=== PATIENT | male | born 1940 | race Caucasian/White ===

== ENCOUNTER → 2023-09-12 13:09 | Outpatient (REF) | payer OTHER, SELFPAY ==
[2023-09-12 13:40] LABS: Blood Urea Nitrogen 21 mg/dl (9-20); Calcium 8.9 mg/dl (8.4-10.2); Carbon Dioxide 25 mmol/L (22-30); Chloride 100 mmol/L (98-107); Glucose 111 mg/dl (70-99); Sodium 134 mmol/L (135-145); eGFR > 60.00
== END ==
LOC: OLABWPC 13:09
PROVIDERS: ATTENDING PHYSICIAN Student in an Organized Health Care Education/Training Program
DX: E11.9 Type 2 diabetes mellitus without complications (principal); I50.32 Chronic diastolic (congestive) heart failure; E03.9 Hypothyroidism, unspecified; E78.2 Mixed hyperlipidemia; I10 Essential (primary) hypertension
CPT/HCPCS: 36415; 80048

== ENCOUNTER 2023-10-08 07:52 | Inpatient (IN) | payer OTHER, SELFPAY ==
[2023-10-08] VITALS (17 sets, daily range): BP systolic 138–170; BP diastolic 77–115; BMI 23.8
[2023-10-08 06:02] LABS: Glucose - Point of Care 182 mg/dl (70-99)
--- NOTE | 2023-10-08 06:12 | ED.CVA ---
History of Present Illness
General
Chief Complaint: CVA/TIA Symptoms
Source: records, family (Nephew), ambulance crew and other (Friend/POA)
Exam Limitations: clinical condition
Time Seen by Provider: 10/08/23 06:07
Nursing documentation reviewed up to this point in time: agreed with
Onset of Stroke Symptoms
Onset of symptoms known: No
Time pt last seen normal is known: Yes
Date last time pt seen normal: 10/07/23
History of Present Illness
History of Present Illness:
83-year-old male with past medical history of hypertension, hyperlipidemia, diabetes, CHF, CAD status post CABG, mild dementia, listed history of prior stroke (reportedly no residual deficits) who presents to the emergency department via EMS from
[facility] after being found down on the ground this morning. Patient cannot participate in history as unfortunately he is completely aphasic. Per EMS report he was found down on the ground, baseline unclear, last normal unclear.
Stroke alert called on arrival. While patient was in CT calls placed to his emergency contacts as well as staff at [facility]. Per the staff at [facility] he is oriented at baseline and performs all ADLs with the exception of needing some help with his
medication in the morning and evening. He was last seen at 8 PM last night when they helped him with his medications. This morning when I went to help give him his medications again and they found him wedged against the door on the ground. He was
breathing but not responding EMS was called to bring him to the hospital. I called his nephew who confirmed he is oriented and ambulatory at baseline does not drive but can do normal tasks and have a conversation. I called his friend (Marlo
Lito) who is also his power of admitting supervisor�patient is apparently a DNR/DNI; POA agreeable to any treatments short of intubation.
Past History
Past History
ED Past Medical History: CHF, HTN, Hypercholesterolemia, NIDDM, [place], Hypothyroidism and Other (Anemia, PNA, PVC's, RBBB, Dementia)
ED Past Surgical History: Cardiac (CABG, STENT) and Cholecystectomy
Social History
Tobacco: Former smoker
Alcohol: Former
Personal:
Living: alone
Review of Systems
Review of Systems
Unable to obtain full review of systems at this time due to: non-verbal
All Other Systems: Not applicable
Phy Exam
Physical Exam
Physical Exam:
General: Laying in bed eyes closed he does open his eyes to voice and physical stimulation but is completely aphasic
Head: Normocephalic, atraumatic
Eyes: Conjunctiva normal, pupils 3 mm and reactive to light bilaterally; he has no clear gaze preference I am able to get him to track across visual field
Throat: Airway intact, handling secretions
Neck: Trachea midline, supple without meningismus
Lungs: Clear to auscultation bilaterally, no wheezing, rales, rhonchi
Heart: Regular rate and rhythm, no murmurs, gallops, or rubs
Abd: Soft, non distended, no masses
Neuro: He has a left facial droop/ptosis; seems to prefer to move right side, not responding to painful stimuli in the left arm or left leg; he does have decent muscle tone in both the left and the right side on attempts at passive range of motion;
he will open his eyes to command but does not follow any complex commands makes no effort on asking to hold his arms or legs against gravity
Skin: no rash or signs of trauma
Extremities: Atraumatic, good pulses extremities
Scores
NIH Stroke Score
Level of Consciousness: 1 - Arousable
LOC Questions: 2-Neither correct
LOC Commands: 1-Performs one correctly
Best Horizontal Gaze: 0-Normal
Visual Piedra: 0=Normal, no visual loss
Facial Palsy: 2=Partial paralysis
Motor - Right Arm: 3=None vs. gravity
Motor - Left Arm: 3=None vs. gravity
Motor - Right Le-None vs. gravity
Motor - Left Le-None vs. gravity
Limb Ataxia: 0-Absent
Sensation: 1-Mild loss
Best Language: 3-Mute/global aphasia
Dysarthria: 0-Normal
Extinction and Inattention: 0-No abnormality
Total Score:: 22
Thrombolytic Contraindication
Inclusion and Exclusion criteria reviewed: Yes
Reasons for NON-Tx with Thrombolytics ABSOLUTE Exclusions: Greater than 4.5 hrs from onset of sxs
IAT Contraindications: Baseline mRS greater than or equal to 3 by history
Heart Failure Risk
Heart Failure Risk Score: Not Applicable
Heart Score for Chest Pain Patients
STEMI patient?: Not applicable
Withdrawal Assessment of Alcohol
Withdrawal Assessment Completed?: Not applicable
Course
Orders/Labs/Results
Orders:
Orders
10/08/23 05:51
CT Head W/o Cont STROKE ALERT Stat
Comment:
Reason For Exam: CVA symptoms
10/08/23 06:07
Electrocardiogram (*1) Stat
Reason for Study: Other
Other Reason for Exam: neuro symptoms
CT Head/Neck Ang STROKE ALERT Urgent
Comment:
Reason For Exam: aphasia, left weakness
Bedside Glucose- Treatment ONCE
Cardiac Monitoring- Treatment ONCE
EKG- Treatment ONCE
IV Insert/Care/Rem.- Treatment PRN
Vital Signs- Treatment ONCE
Frequency: Once
Pulse Ox/cont/shift [RESP] Stat
Quantity: 1
10/08/23 06:09
CT Brain Perfusion Urgent
Comment:
Reason For Exam: aphasia, CVA, unclear onset
10/08/23 06:11
Complete Blood Count/With Diff Urgent
Comprehensive Metabolic Panel Urgent
Creatine Phosphokinase Urgent
Comment: ADD ON
PTT Urgent
Prothrombin Time Urgent
10/08/23 06:41
Add On- LAB Urgent
Tests Added?: CPK
10/08/23 06:47
Aspirin 300 mg RECTAL NOW STA
10/08/23 07:04
NEUROLOGY CONSULT Urgent
Consulting Provider: Gerald Arenas
Was physician already notified: Yes
10/08/23 07:40
Admit/Transfer Patient As Directed
Co-Sign Provider:
Level of Care: Inpatient admission
Assign to:: IMU- Intermediate Care
Physician / Group: Sarbjit White
Diagnosis: left M1 area CVA
Reason for Hospitalization: left M1 area CVA
Expected length of stay greater than two midnights?: Yes
ELOS- Estimated Length of Stay in days: 3
I certify the patient meets the requirements for IP care: Yes
10/08/23 07:41
Code Status As Directed
Resuscitation Status: Do not resuscitate
Based on pt advanced directive or healthcare POA form: Yes
Physician note:: 10/07 ER discussed with POA - see note
DNR Bracelet Application ONCE
10/08/23 10:01
Acetaminophen [Tylenol/Feverall] 650 mg RECTAL Q4HPRN PRN
Acetaminophen [Tylenol] 650 mg PO Q4HPRN PRN
10/08/23 10:01
Case Management Consult ONCE
Case Management Consult: Discharge Planning
Comment: stroke/tia
DIETARY CONSULT Routine
Reason for Consult: stroke/TIA
Radio Interference Supervisor Urgent
Activity As Directed
Activity Level: As Tolerated
NIH Stroke Scale As Directed
Directions: Per protocol
Comment: every shift and with any change in condition or mental status
Neurological Checks As Directed
Frequency: q4h
Additional Instructions:: q4h x 24h upon admission to the floor, then qshift & with any change in condition
and mental status
Patient Education As Directed
Type: Stroke education packet
Comment: provide to patient and family
Pneumatic Compression Sleeves As Directed
Type: Knee high
Swallow Screening CVA/TIA ONLY As Directed
Comment: NPO until swallowing screening completed
If patient FAILS swallow screening:: NPO, Speech Therapy consult, Aspiration Precautions
If patient PASSES swallow screening, diet:: 1999 CHO Diabetic
Vital Signs As Directed
Frequency: Per unit guidelines
O2 Therapy [RESP] Routine
Nasal Cannula Liter Flow: 2 LPM
Titrate/Wean O2 to maintain O2 sat greater than (%): 94
Special Instructions: Titrate oxygen via nasal cannula starting at 2 liters/minute to keep SpO2 greater than
94%. Notify physician if greater than or equal to 6 liters/minute of O2
Ot Eval And Treat Routine
Pt Eval And Treat Routine
Activity Level: With Assistance
Speech Therapy Eval & Treat Routine
DX Deep Vein Thrombosis Video Routine
10/08/23 10:15
Labetalol HCl [Trandate] 10 mg IV Q6HPRN PRN
10/09/23 06:00
Basic Metabolic Panel IN AM
Cardiovascular Evaluation IN AM
Complete Blood Count/No Diff IN AM
10/10/23 06:00
Basic Metabolic Panel IN AM
Complete Blood Count/No Diff IN AM
10/11/23 06:00
Basic Metabolic Panel IN AM
Complete Blood Count/No Diff IN AM
Abnormal Lab Results
10/08/23 10/08/23
06:00 06:11
WBC 15.0 H 10^3/uL
(4.8-10.8)
RBC 3.78 L 10^6/uL
(4.70-6.10)
Hgb 10.9 L g/dL
(13.0-18.0)
Hct 33.6 L %
(39.0-52.0)
MCHC 32.4 L g/dL
(33.0-37.0)
RDW 16.5 H %
(11.5-14.5)
Abs Immat Gran (auto) 0.2 H 10^3/uL
(0-0.05)
Absolute Neuts (auto) 13.3 H 10^3/uL
(1.4-6.5)
Absolute Lymphs (auto) 0.7 L 10^3/uL
(1.2-3.4)
Absolute Monos (auto) 0.9 H 10^3/uL
(0.1-0.6)
Immature Gran % 1.0 H %
(0-0.5)
Neutrophils % 88.1 H %
(42.2-75.2)
Lymphocytes % 4.4 L %
(20.5-51.1)
PT 15.0 H Sec
(11.4-14.6)
APTT 41.6 H Sec
(23.4-35.0)
BUN 31 H mg/dl
(9-20)
Glucose 216 H mg/dl
(70-99)
Total Bilirubin 2.7 H mg/dl
(0.2-1.3)
AST 70 H U/L
(17-59)
Alkaline Phosphatase 142 H U/L
(38-126)
POC Glucose 182 H mg/dl
(70-99)
10/08/23 06:11
10/08/23 06:11
Vital Signs
Pulse: 68
Resp Rate: 22
Blood pressure: 149/77
Initial and Last Documented VS:
Initial Vital Signs
Temp Pulse Resp BP Pulse Ox
34.7 C L 64 18 150/108 96
10/08/23 06:10 10/08/23 06:10 10/08/23 06:10 10/08/23 06:10 10/08/23 06:10
Last Documented Vital Signs
Temp Pulse Resp BP Pulse Ox
35.3 C L 76 21 163/104 98
10/08/23 10:42 10/08/23 14:45 10/08/23 14:45 10/08/23 14:00 10/08/23 14:49
94% SpO2 on room air
MDM/Problems Addressed
Differential Diagnosis Includes:
CVA, traumatic head injury, encephalopathy related to infection, electrolyte derangement
MDM/Problems Addressed:
83-year-old male arrives from assisted living facility found down on floor this morning. Last normal 8 PM per staff at living facility. Accu-Chek normal. Aphasic, left facial droop, suspect left greater than right weakness very difficult to
examine. NIH stroke scale by my count 22. Stroke alert called on arrival. IV placed usual labs sent off; added CPK. Will check an EKG. CT head noncontrast called back by radiology positive for left MCA stroke with likely M1 occlusion. Discussed
with neurology in real-time while gathering information about onset of symptoms�orders placed for CTA head and neck as well as a CT perfusion. Based on this timeline per neurology recommendation he may be a candidate for TNK depending on results of
CT perfusion. Monitor closely.
Neurology reviewed CT perfusion unfortunately based on findings would not be a safe candidate for TNK and with MRS greater than 2 not a good candidate for IT. Neurology recommending low-dose aspirin and consult patient will obviously require
admission. Case discussed with hospitalist for admission.
Chronic conditions affecting care:
Dementia, hypertension, hyperlipidemia, diabetes, cardiac history�all impacted stroke risk and treatment options for stroke
*Radiology
Radiology exam reviewed: radiology read reviewed
*Pulse Oximetry
Patient hypoxic: no
*EKG
Interpreted by ED Provider?: Yes
Comparison EKG: no changes
Heart Rate: 69
Rate: normal
Rhythm: sinus
Aspers: left axis deviation
Interval: normal interval
QRS Pattern: right bundle branch block and left vent hypertrophy
Ischemia: T-wave inversion
*Critical Care Note
Total Time (30-74mins, 75-104mins- exclusive of procedures): 48
comment:
Critical care statement: A total of 48 minutes of critical care time was provided for this patient. This includes management of unstable vital signs, evaluation of the patient at bedside, frequent reassessment, discussion with
consultants/hospitalist, and review of pertinent medical records. This time was separate from time utilized to perform any aforementioned documented procedures
Data Reviewed
Source: records, family (Nephew), ambulance crew, fpc and other (Friend/POA)
Patient Management
Discussion with other providers: Hospitalist (Discussed with hospitalist) and Mussel Farmer (Discussed with neurology)
Escalation/DeEscalation of care consider admission/obs:
Admission indicated
ED Attending Note
-
Portions of this chart may have been created with voice recognition software.� Occasional wrong word or��sound alike� substitutions may have occurred due to the inherent limitations of voice recognition software.
Discharge Plan
Departure
Patient Disposition: Admit
Date of Disposition: 10/08/23
Time of Disposition: 07:04
Admit to doctor: Francisco
Presentation/result/management discussed w/ accepting MD/DO: Hospitalist
Discharge Problem:
Acute cerebrovascular accident (CVA)
Interventions
Interventions:
*Risk Screen - Suicide Last Done: 10/08/23 06:29
*General Assessment Last Done: 10/08/23 06:30
*Neglect/Abuse Screening Last Done: 10/08/23 06:31
ED- Fall Risk Assessment Last Done: 10/08/23 10:04
*ED COVID-19 Vaccine History Last Done: 10/08/23 06:32
*Nursing Disposition Last Done: 10/08/23 10:04
ED- Pulmonary Assessment Last Done: 10/08/23 06:15
ED- Neurological Assessment Last Done: 10/08/23 06:33
ED- Cardiac Assessment Last Done: 10/08/23 06:15
ED Swallowing Screen Last Done: 10/08/23 06:33
Discharge Date and Time
Discharge Date/Time: 10/08/23 10:04
[2023-10-08 06:22] LABS: % Basophils 0.3 % (0-2); % Eosinophils 0.1 % (0-6); % Lymphocytes 4.4 % (20.5-51.1); % Monocytes 6.1 % (1.7-9.3); % Neutrophils 88.1 % (42.2-75.2); Absolute Immature Granulocytes 0.2 10^3/uL (0-0.05); Absolute Lymphocytes 0.7 10^3/uL (1.2-3.4); Absolute Monocytes 0.9 10^3/uL (0.1-0.6); Absolute Neutrophils 13.3 10^3/uL (1.4-6.5); Hematocrit 33.6 % (39.0-52.0); Hemoglobin 10.9 g/dL (13.0-18.0); Mean Corp Hgb Conc. 32.4 g/dL (33.0-37.0); Mean Corpuscular Hgb 28.8 pg (27.0-31.0); Mean Corpuscular Volume 88.9 fL (80.0-94.0); Mean Platelet Volume 10.3 fL (7.4-10.4); Nucleated Red Blood Cells % 0 % (-); Platelet Count 331 10^3/uL (130-400); Red Blood Cell Count 3.78 10^6/uL (4.70-6.10); Red Cell Dist. Width 16.5 % (11.5-14.5)
[2023-10-08 06:30] LABS: INR 1.19
[2023-10-08 06:31] LABS: APTT 41.6 Sec (23.4-35.0)
[2023-10-08 06:49] LABS: ALT (SGPT) 24 U/L (0-50); AST (SGOT) 70 U/L (17-59); Albumin 4.9 g/dl (3.5-5.0); Alkaline Phosphatase 142 U/L (38-126); Blood Urea Nitrogen 31 mg/dl (9-20); Calcium 10.2 mg/dl (8.4-10.2); Carbon Dioxide 24 mmol/L (22-30); Chloride 98 mmol/L (98-107); Glucose 216 mg/dl (70-99); Potassium 4.5 mmol/L (3.5-5.1); Sodium 136 mmol/L (135-145); Total Bilirubin 2.7 mg/dl (0.2-1.3); Total Protein 7.7 g/dl (6.3-8.2); eGFR > 60.00
[2023-10-08 06:53] LABS: Creatine Phosphokinase 101 U/L (55-170)
[2023-10-08] MEDS: ASPIRIN 300 MG RECTAL (06:59)
--- NOTE | 2023-10-08 07:39 | CON.NEURO ---
Neuro Assessment/Plan
Assessment
IMPRESSION:
1). There is partially calcific atherosclerotic plaque at the left carotid bifurcation associated with complete occlusion of the left internal carotid artery approximately 1 cm distal to its origin with thrombotic occlusion of the remainder of the
left internal carotid artery and M1 segment of the left middle cerebral
2). There is a small volume partially calcific atherosclerotic plaque in the right carotid bifurcation and cavernous portion of the right internal carotid artery without significant associated stenosis.Normal flow is demonstrated in the right
anterior and middle cerebral arteries and there is cross filling of the left anterior cerebral artery via patent anterior communicating artery..
The right posterior communicating artery is also patent
IMPRESSIONS/RECOMMENDATIONS:
Abrupt onset loss of consciousness and aphasia
Most likely secondary to occlusion of the left internal carotid artery with additional occlusion of the M1 branch on the left producing an acute ischemic stroke on the left despite aspirin and atorvastatin use
Patient was considered for use of tenecteplase and intra-arterial thrombectomy. However, based on the very large size core of permanently damaged tissue as demonstrated by CT perfusion and mismatch ratio less than 1.8, it is unlikely that the
patient would have a significant likelihood of improvement compared with possibility of hemorrhagic conversion and therefore those therapies were not offered. Additionally, due to the patient's MRS Clot retrieval
Plan
Provide aspirin 300 mg per rectum unless and until patient able to take by mouth
Would provide clopidogrel therapies by mouth if access takes place within 21 days of onset of symptoms
Unable to provide atorvastatin 80 mg due to lack of by mouth access
Unfortunately, no clear benefit from stenting of newly occluded left internal carotid artery is likely
Goal of permissive hypertension with blood pressures up to 220/120
Goal of normoglycemia
Rehabilitation evaluations
Provide medical educational materials
Supportive care for the patient's dementia
Will continue to follow patient. Thank you.
Consultation
Order
Date of Consultation: 10/08/23
Requesting Provider: ED Physician
Reason for Consult: Stroke Alert
Subjective/Objective
Subjective Data
Date of Service: October 08, 2023
Unknown handed
Patient presented to this hospital's emergency department by EMS due to found on the ground. Patient self was unable to provide his own medical history. Stroke alert was activated prior to the patient's arrival to this hospital's emergency
department. According to medical records and review of the patient's medical chart as well as discussion with professional medical care providers, the patient in his usual state of health has mild dementia, and is typically requiring assistance
with medications, although able to perform his own activities of daily living. The patient was last seen normal at 2000 hrs. last evening and was found to today at approximately 0530 hrs.
Objective Data
Vital Signs
Temp Pulse Resp BP Pulse Ox
34.7 C L 67 27 150/91 97
10/08/23 06:10 10/08/23 07:20 10/08/23 07:20 10/08/23 07:20 10/08/23 06:45
Lab Results
10/08/23 06:11
10/08/23 06:11
PT 15.0 Sec (11.4-14.6) H 10/08/23 06:11
INR 1.19 10/08/23 06:11
APTT 41.6 Sec (23.4-35.0) H 10/08/23 06:11
Sodium 136 mmol/L (135-145) 10/08/23 06:11
Potassium 4.5 mmol/L (3.5-5.1) 10/08/23 06:11
BUN 31 mg/dl (9-20) H 10/08/23 06:11
Glucose 216 mg/dl (70-99) H 10/08/23 06:11
Calcium 10.2 mg/dl (8.4-10.2) 10/08/23 06:11
Patient Allergies
losartan potassium [From Cozaar] Allergy (Unknown, Verified 02/01/22 06:03)
Unknown
sertraline HCl [From Zoloft] Allergy (Verified 02/01/22 06:03)
weakness
CVA Assessment
Onset of Stroke Symptoms
Onset of symptoms known: No
Date of onset of symptoms: 10/07/23
Time of onset of symptoms: 05:30
Time pt last seen normal is known: Yes
Date last time pt seen normal: 10/07/23
Time last time pt seen normal: 20:00
NIH Stroke Score
Level of Consciousness: 1 - Arousable
LOC Questions: 2-Neither correct
LOC Commands: 1-Performs one correctly
Best Horizontal Gaze: 0-Normal
Visual Piedra: 0=Normal, no visual loss (Unable to assess)
Facial Palsy: 0=Normal, symmetrical
Motor - Right Arm: 4=No movement
Motor - Left Arm: 0=No drift 10 seconds
Motor - Right Le-No movement
Motor - Left Le-No drift 5 seconds
Limb Ataxia: 0-Absent
Sensation: 0-Normal
Best Language: 3-Mute/global aphasia
Dysarthria: 0-Normal
Explanation of inability to score dysarthria: Completely aphasic
Extinction and Inattention: 0-No abnormality
Total Score:: 15
Tenecteplase Contraindications
Inclusion and Exclusion criteria reviewed: Yes
IAT Contraindications: Baseline mRS greater than or equal to 3 by history
Modified [place] Score (MRS)
-
Modified [place] Scale (mRS): Moderate disability. Requires some help, able to walk unassisted.
Score: 3
Review of Systems
-
Unable to obtain full review of systems at this time due to: Dementia, Lethargy and Aphasia
History Source: Patient
All other systems: Reviewed and negative
Physical Exam
-
General: No Apparent Distress and Appears Stated Age
Eyes: Round OU, [place] Conjunctivae and No Ptosis; Negative Able to visualize OU
HEENT: Anicteric, Moist Mucous Membranes and Poor Dentition
Neck: Full Range of Motion
Respiratory: No Dyspnea
Cardiac: No JVD
GI: Non-distended
Skin: Unremarkable
Extremities: No Clubbing, No Cyanosis and No Edema
Psych: Unable to Assess
Extended Neurological Exam
Mood & Affect: Unable to Assess
Attention Span & Concentration: Interactive, Lethargic, Closes Eyes after Stimulation (After approximately 3 seconds) and Other (Does follow some single step requests)
Memory: Unable to Assess
Tremor: Hand Tremor Absent and Head Tremor Absent
Involuntary Movement: None
Speech: Mute
Cranial Nerve II: Left Eye: Pupillary Reactivity Unremarkable, Pupillary Size Unremarkable, Unable to Assess Visual Piedra and Smaller than Contralateral
Cranial Nerve II: Right Eye: Pupillary Reactivity Unremarkable, Pupillary Size Unremarkable and Unable to Assess Visual Piedra
Cranial Nerves III, IV, : Extraocular Movement: Absent Doll's Eyes and Other (Questionable reduced eye movement to the right)
Cranial Nerve V: Facial Sensation: Unable to Assess
Cranial Nerve VII: Facial Symmetry: Normal Facial Symmetry
Cranial Nerve VIII: Hearing: Unremarkable Hearing to Normal Conversational Volume
Cranial Nerves IX, X: Palate Movement: Unable to Assess
Cranial Nerve XI: Shoulder Shrug: Unable to Assess
Cranial Nerve XII: Tongue Protusion: Unable to Assess
Muscle Bulk & Tone: Bulk Unremarkable and Tone Unremarkable
Deep Tendon Reflexes: Trace Throughout
Cold Sensation: Unable to Assess
Vibration Sensation: Unable to Assess
Touch Sensation: Negative Withdrawal to Pain (On the right)
Coordination: Unable to Assess
Babinski Sign: Present on Right; Negative Present on Left
Gait & Station: Unable to Assess
Data Reviewed
-
CT-A: Report Reviewed
CT-Perfusion: Image Reviewed
CT Head: Report Reviewed
Labs: Report Reviewed
Lipid Profile: Ordered
Reviewed with: Physician and Nurse
Old Records: Summarized
Medications
-
Home Medications
Medication Instructions Recorded
atorvastatin 10 mg tablet 80 mg PO HS High cholesterol 08/14/15
lisinopril 2.5 mg tablet 2.5 mg PO DAILY ##0 04/12/15
aspirin 81 mg chewable tablet 81 mg PO DAILY Blood clot 08/04/20
prevention/tx
docusate sodium 100 mg capsule 100 mg PO BIDPRN PRN CONSTIPATION 08/04/20
ferrous sulfate 325 mg (65 mg 325 mg PO DAILY Supplement 08/04/20
iron) tablet (FeroSul)
isosorbide mononitrate 30 mg 30 mg PO DAILY Heart 08/04/20
tablet,extended release 24 hr disease/condition
metformin 500 mg tablet 500 mg PO BID@0800,1700 Diabetes 08/04/20
metoprolol tartrate 25 mg tablet 25 mg PO BID Blood pressure 08/04/20
levothyroxine 125 mcg tablet 125 mcg PO DAILY AT 0700 #30 tabs 08/07/20
furosemide 40 mg tablet 40 mg PO Q48H 10/25/20
abxmvttk-ozn-bcoum acid 0.4 1 tab PO DAILY Supplement 02/01/22
mg-lycopene 300 mcg-lutein 250 mcg
tablet (Cerovite Senior)
acetaminophen 500 mg tablet 1,000 mg PO Q8HPRN PRN pain #0 tabs 02/03/22
Past History
Past History
ED Past Medical History: CAD, Cancer (myelodysplastic disorder), CHF, GERD, HTN, Hypercholesterolemia, NIDDM, [place], Hypothyroidism, Psychiatric (AMOL, depression) and Other (Anemia, PNA, PVC's, RBBB, Dementia, pulmonary HTN, cerebral aneurysm (1992),
NAFLD)
ED Past Surgical History: Cardiac (CABG, STENT), Cholecystectomy and Other (bilateral herniorrhaphy, benign back tumor, amblyopia 1956)
Social History
Tobacco: Former smoker
Alcohol: Former
Personal:
Living: alone
Family History
Family History: Other (reviewed and non-contributory)
--- NOTE | 2023-10-08 07:45 | HPS.HSE ---
Addendum entered and electronically signed by Sarbjit White MD 10/08/23 13:26:
Patient nephew at bedside and care plan discussed
If in agreement for patient to be evaluated for hospice care transition. Legal guardian is friend.
Case management informed about discussion and hospice consult placed.
Discontinue Zosyn/blood cultures/UA
Continue supportive measures
Original Note:
Family Physician
-
Family Physician: Alexandra Roy DO
Chief Complaint
-
Found down
History of Present Illness
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
diastolic heart failure was brought in from [facility] after patient was found down. Per ER physician discussion with Virgil RAMOS patient was at his usual state of health yesterday 8 PM. Patient to have history of CVA without any
residual weakness unable to get around without significant assistance and communicative. Patient was found in the morning today on floor in his room. No visible laceration/trauma. Patient had a CT head in ER which showed concern of new left-sided
CVA. On exam patient have right facial droop/aphasic and no withdrawal to pain on right upper extremity. A follow-up CTA and CT cerebral perfusion showed large area of M1 carotid distribution had infarction. ER physician discussed case with
neurology and patient not a candidate for TNK(thrombolysis)/IAT. Patient being admitted for further conservative management. Patient has been provided rectal aspirin 300 mg in ER.
During my evaluation in ER patient encephalopathic/not verbalizing any words. As mentioned above patient have significant right facial droop/right upper extremity weakness. Unable to cooperate with any examination.
Medical History
Past Medical History
Past Medical History: Reports Other
Additional Past Medical History:
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
Past Surgical History: Reports Other
Social History
Unable to obtain full social history at this time due to: Patient Non-verbal
Living: [facility]
Family History
Family History: Unable to Obtain
Allergies / Home Medications
Allergies reflects when Allergies were last updated in [employer].
Home Medications with original date entered in [employer]
Allergy/Medication List:
Allergies
Allergy/AdvReac Type Severity Reaction Status Date / Time
losartan potassium Allergy Unknown Unknown Verified 02/01/22 06:03
[From Cozaar]
sertraline HCl [From Zoloft] Allergy weakness Verified 02/01/22 06:03
Home Medications
atorvastatin 10 mg tablet 80 mg PO HS High cholesterol 03/14/15
lisinopril 2.5 mg tablet 2.5 mg PO DAILY ##0 04/12/15
aspirin 81 mg chewable tablet 81 mg PO DAILY Blood clot prevention/tx 08/04/20
docusate sodium 100 mg capsule 100 mg PO BIDPRN PRN CONSTIPATION 08/04/20
ferrous sulfate 325 mg (65 mg iron) tablet (FeroSul) 325 mg PO DAILY Supplement 08/04/20
isosorbide mononitrate 30 mg tablet,extended release 24 hr 30 mg PO DAILY Heart disease/condition 08/04/20
metformin 500 mg tablet 500 mg PO BID@0800,1700 Diabetes 08/04/20
metoprolol tartrate 25 mg tablet 25 mg PO BID Blood pressure 08/04/20
levothyroxine 125 mcg tablet 125 mcg PO DAILY AT 0700 #30 tabs 08/07/20
furosemide 40 mg tablet 40 mg PO Q48H 10/25/20
fjnxbywz-pxy-tsvvt acid 0.4 mg-lycopene 300 mcg-lutein 250 mcg tablet (Cerovite Senior) 1 tab PO DAILY Supplement 02/01/22
acetaminophen 500 mg tablet 1,000 mg PO Q8HPRN PRN pain #0 tabs 02/03/22
Review of Systems
-
Unable to obtain full review of systems at this time due to: Patient Non-verbal
Physical Exam
Vital Signs
Vital Signs
Temp Pulse Resp BP Pulse Ox
94.5 F L 67 27 150/91 97
10/08/23 06:10 10/08/23 07:20 10/08/23 07:20 10/08/23 07:20 10/08/23 06:45
Physical Exam
General: Cachectic; No Appears in Distress
HEENT: Oxygen
Respiratory: Clear
Cardiac: S1/S2, Regular Rhythm and Murmur (regurgitation murmur in mitral valve)
GI: Soft, Non Tender and Non Distended
Musculoskeletal: No Edema
Neuro: Awake, Facial Droop (Right) and Other (No withdrawal to painful stimuli on right upper ext); No Oriented
Psych: Calm
Laboratory Results
-
10/08/23 06:11
10/08/23 06:11
Laboratory Results
PT 15.0 Sec (11.4-14.6) H 10/08/23 06:11
INR 1.19 10/08/23 06:11
APTT 41.6 Sec (23.4-35.0) H 10/08/23 06:11
Total Bilirubin 2.7 mg/dl (0.2-1.3) H 10/08/23 06:11
AST 70 U/L (17-59) H 10/08/23 06:11
ALT 24 U/L (0-50) 10/08/23 06:11
Alkaline Phosphatase 142 U/L (38-126) H 10/08/23 06:11
Data Reviewed
-
CT Scan: Image Personally Visualized and interpreted and Report Reviewed by me
Lab Data: Labs Reviewed by me
Old Records: Reviewed
Impression/Plan
-
CT head
1). 11 cm subacute nonhemorrhagic left middle cerebral artery infarct with associated thrombus in the left middle cerebral artery
2). There is moderate diffuse cortical atrophy with moderate nonspecific white matter changes as described above.
CTA head and neck
1). There is partially calcific atherosclerotic plaque at the left carotid bifurcation associated with complete occlusion of the left internal carotid artery approximately 1 cm distal to its origin with thrombotic occlusion of the remainder of the
left internal carotid artery and M1 segment of the left middle cerebral
2). There is a small volume partially calcific atherosclerotic plaque in the right carotid bifurcation and cavernous portion of the right internal carotid artery without significant associated stenosis.Normal flow is demonstrated in the right
anterior and middle cerebral arteries and there is cross filling of the left anterior cerebral artery via patent anterior communicating artery..
The right posterior communicating artery is also patent

1. Left MCA area CVA
h/o CVA
-Patient found down with last known normal state at 8 PM yesterday
-Right facial droop/right upper extremity weakness
-CT head and CTA head and neck showing large MCA area CVA. Atherosclerotic blockage of internal carotid artery as well. See above
-CT cerebral perfusion study done in ER
-ER discussed case with neurology and not a candidate for TNKase/tPA versus IAT
-Patient got rectal aspirin 300 mg
-Admit to IMU for further evaluation
-Speech therapy evaluation start medication if clear. Currently aphasic and unlikely to pass
- labetalol for blood pressure control, subacute stroke out of permissive hypertension window
-Neurology evaluation
2. NIDDM
-Maintain insulin sliding scale
3. Essential hypertension
-IV labetalol for systolic blood pressure above 180. Hold oral medication until clear speech therapy evaluation
4. Chronic diastolic congestive heart failure
History of mitral regurgitation and repair
Severe pulmonary hypertension
-Hold Lasix as patient n.p.o.
-No signs of volume overload
5. Hypothyroidism
-Hold levothyroxine as NPO
DVT PPX -scd
DNR/DNI -ER physician discussed with patient POA/friend
Total time spent : 78 mins
I personally saw and examined the patient.
I have reviewed all diagnostic interpretations and treatment plans as written.
Time includes patient management by me, time spent at the patients bedside, time to review lab and imaging results, discussing patient care, documentation in the medical record, and time spent with the family or caregiver and discussing care plan
with RN/Consultants.
--- NOTE | 2023-10-08 10:37 | PTCARENOTE ---
Addendum entered by Alina Osei 10/08/23 18:52:
CORRECTION- NIH OF 30.
Addendum entered by Alina Osei 10/08/23 11:46:
Althea hugger applied as ordered. 1st set of blood cultures sent. IVF infusing as ordered. Bed alarm in place for safety.
Original Note:
Pt received from ED via stretcher. NIH completed with result of 32, see intervention- Dr. White notified via TT. Hypothermic- awaiting arrival of althea alfonso.
[2023-10-08 10:38] LABS: Glucose - Point of Care 137 mg/dl (70-99)
[2023-10-08] MEDS: NSS IV (11:08)
[2023-10-08] MEDS: NSS 1000 IV (11:32)
--- NOTE | 2023-10-08 13:57 | CM ---
CM met with patient and family in room. Patient's nephew is in room. Nephew stated that they spoke with patient's POA and friend Donavan. They are in agreement with end of life care. They are in agreement with Hospice and possible transfer to [facility]. CM sent referral to [facility]. CM updated motion study technician [facility] hosp[facility] with new referral. Referral placed to Hospice via [facility].
CM will continue to follow for further needs.
PLAN: Hospice.
--- NOTE | 2023-10-08 14:44 | HOSPNOTE ---
Spoke with the patients POA/energy attorney Marlo Morse. Hospice philosophy and care explained. He wants the patient to return to [facility] when stable with Hospice care. Hospice phone numbers were given to him and he was encouraged to call back with
any questions or concerns.
[2023-10-08] MEDS: NOVOLOG FLEXPEN-LOW RESISTANCE SC (18:18)
[2023-10-08 18:19] LABS: Glucose - Point of Care 116 mg/dl (70-99)
--- NOTE | 2023-10-08 20:13 | PTCARENOTE ---
Received pt from mino RAMOS. Pt arousable to verbal, opens eyes when name is called nonverbal/withdrawn, R arm and L leg flaccid. NIH 30 same as mino RAMOS, neuro checks Q4 (see worklist). NSR w/ BBB, + pedals. 2L NC O2 sat 96%, lungs diminished.
Incont x2. SCDs in place. NS infusing @ 75 ml/hr. Mouth care provided. Q2T provided. Pt is laying comfortable in bed with call zuniga in reach.
[2023-10-09] VITALS (9 sets, daily range): BP systolic 131–148; BP diastolic 72–89; BMI 22.7
[2023-10-09] MEDS: NSS 1000 IV ×2 (00:19→14:19)
[2023-10-09] MEDS: NOVOLOG FLEXPEN-LOW RESISTANCE 1 UNITS SC ×2 (00:20→06:19)
[2023-10-09 00:26] LABS: Glucose - Point of Care 150 mg/dl (70-99)
[2023-10-09 04:29] LABS: Hematocrit 30.1 % (39.0-52.0); Hemoglobin 10.2 g/dL (13.0-18.0); Mean Corp Hgb Conc. 33.9 g/dL (33.0-37.0); Mean Corpuscular Hgb 28.5 pg (27.0-31.0); Mean Corpuscular Volume 84.1 fL (80.0-94.0); Mean Platelet Volume 10.8 fL (7.4-10.4); Platelet Count 288 10^3/uL (130-400); Red Blood Cell Count 3.58 10^6/uL (4.70-6.10); Red Cell Dist. Width 16.8 % (11.5-14.5); White Blood Cell Count 22.6 10^3/uL (4.8-10.8)
[2023-10-09 04:53] LABS: Blood Urea Nitrogen 39 mg/dl (9-20); Calcium 9.6 mg/dl (8.4-10.2); Carbon Dioxide 18 mmol/L (22-30); Chloride 104 mmol/L (98-107); Estimated Creatinine Clearance 43 ml/min; Glucose 140 mg/dl (70-99); HDL Cholesterol 41 mg/dl; LDL Cholesterol, Calculated 42 mg/dl; Potassium 4.8 mmol/L (3.5-5.1); Sodium 137 mmol/L (135-145); Total Cholesterol 109 mg/dl (50-199); Triglyceride 131 mg/dl (10-149); Very Low Density Lipoprotein 26 mg/dl (0-30); eGFR 54.85
[2023-10-09 06:14] LABS: Glucose - Point of Care 183 mg/dl (70-99)
--- NOTE | 2023-10-09 09:58 | W.PN.NEURO.1 ---
Today's Communication / Plan
-
Provide aspirin 300 mg per rectum unless and until patient able to take by mouth
Neuro Assessment/Plan
Assessment
IMPRESSION:
1). There is partially calcific atherosclerotic plaque at the left carotid bifurcation associated with complete occlusion of the left internal carotid artery approximately 1 cm distal to its origin with thrombotic occlusion of the remainder of the
left internal carotid artery and M1 segment of the left middle cerebral
2). There is a small volume partially calcific atherosclerotic plaque in the right carotid bifurcation and cavernous portion of the right internal carotid artery without significant associated stenosis.Normal flow is demonstrated in the right
anterior and middle cerebral arteries and there is cross filling of the left anterior cerebral artery via patent anterior communicating artery..
The right posterior communicating artery is also patent
IMPRESSIONS/RECOMMENDATIONS:
Abrupt onset loss of consciousness and aphasia
Most likely secondary to occlusion of the left internal carotid artery with additional occlusion of the M1 branch on the left producing an acute ischemic stroke on the left despite aspirin and atorvastatin use
Patient was considered for use of tenecteplase and intra-arterial thrombectomy. However, based on the very large size core of permanently damaged tissue as demonstrated by CT perfusion and mismatch ratio less than 1.8, it is unlikely that the
patient would have a significant likelihood of improvement compared with possibility of hemorrhagic conversion and therefore those therapies were not offered. Additionally, due to the patient's MRS Clot retrieval
Plan
Provide aspirin 300 mg per rectum unless and until patient able to take by mouth
Goal of normotension
Would provide clopidogrel therapies by mouth if access takes place within 21 days of onset of symptoms
Unable to provide atorvastatin 80 mg due to lack of by mouth access
Rehabilitation evaluations
Provide medical educational materials
Supportive care for the patient's dementia
Will continue to follow as needed.
Subjective/Objective
Subjective Data
Date of Service: October 09, 2023
Patient unable to provide his own medical history
Objective Data
Vital Signs
Temp Pulse Resp BP Pulse Ox
37.9 C 72 19 145/89 97
10/09/23 07:40 10/09/23 06:00 10/09/23 06:00 10/09/23 06:00 10/09/23 09:50
Lab Results
10/09/23 03:59
10/09/23 03:59
PT 15.0 Sec (11.4-14.6) H 10/08/23 06:11
INR 1.19 10/08/23 06:11
APTT 41.6 Sec (23.4-35.0) H 10/08/23 06:11
Sodium 137 mmol/L (135-145) 10/09/23 03:59
Potassium 4.8 mmol/L (3.5-5.1) 10/09/23 03:59
BUN 39 mg/dl (9-20) H 10/09/23 03:59
Glucose 140 mg/dl (70-99) H 10/09/23 03:59
Calcium 9.6 mg/dl (8.4-10.2) 10/09/23 03:59
LDL Cholesterol, Calc 42 mg/dl 10/09/23 03:59
Patient Allergies
losartan potassium [From Cozaar] Allergy (Unknown, Verified 02/01/22 06:03)
Unknown
sertraline HCl [From Zoloft] Allergy (Verified 02/01/22 06:03)
weakness
Review of Systems
-
Unable to obtain full review of systems at this time due to: Aphasia
History Source: Patient
All other systems: Reviewed and negative
Physical Exam
-
General: No Apparent Distress and Appears Stated Age
Eyes: Round OU, [place] Conjunctivae and No Ptosis; Negative Able to visualize OU
HEENT: Anicteric, Moist Mucous Membranes and Poor Dentition
Neck: Full Range of Motion
Respiratory: No Dyspnea
Cardiac: No JVD
GI: Non-distended
Skin: Unremarkable
Extremities: No Clubbing, No Cyanosis and No Edema
Psych: Unable to Assess
Extended Neurological Exam
Mood & Affect: Unable to Assess
Attention Span & Concentration: Lethargic, Closes Eyes after Stimulation (After approximately 3 seconds) and Other (Does follow some single step requests)
Memory: Unable to Assess
Tremor: Hand Tremor Absent and Head Tremor Absent
Involuntary Movement: None
Speech: Mute
Cranial Nerve II: Left Eye: Pupillary Size Unremarkable and Unable to Assess Visual [place]
Cranial Nerve II: Right Eye: Pupillary Size Unremarkable and Unable to Assess Visual [place]
Cranial Nerves III, IV, : Extraocular Movement: Other (Questionable reduced eye movement to the right)
Cranial Nerve V: Facial Sensation: Unable to Assess
Cranial Nerve VII: Facial Symmetry: Normal Facial Symmetry
Cranial Nerve VIII: Hearing: Unremarkable Hearing to Normal Conversational Volume
Cranial Nerves IX, X: Palate Movement: Unable to Assess
Cranial Nerve XI: Shoulder Shrug: Unable to Assess
Cranial Nerve XII: Tongue Protusion: Unable to Assess
Muscle Bulk & Tone: Bulk Unremarkable and Tone Unremarkable
Cold Sensation: Unable to Assess
Vibration Sensation: Unable to Assess
Coordination: Unable to Assess
Gait & Station: Unable to Assess
Past History
Past History
ED Past Medical History: CAD, Cancer (myelodysplastic disorder), CHF, CVA, GERD, HTN, Hypercholesterolemia, NIDDM, AR, Hypothyroidism, Psychiatric (AMOL, depression) and Other (Anemia, PNA, PVC's, RBBB, Dementia, pulmonary HTN, cerebral aneurysm
(1992), NAFLD)
ED Past Surgical History: Cardiac (CABG, STENT), Cholecystectomy and Other (bilateral herniorrhaphy, benign back tumor, amblyopia 1955)
Social History
Tobacco: Former smoker
Alcohol: Former
Personal:
Living: alone
Family History
Family History: Other (reviewed and non-contributory)
Medications
-
Medications:
Generic Name Dose Route Start Last Admin
Trade Name Freq PRN Reason Stop Dose Admin
Acetaminophen 650 mg 10/08/23 10:01
Acetaminophen 650 Mg Rectal Suppository RECTAL 11/05/23 10:00
Q4HPRN PRN
ABARCA, mild pain, or temp >100.4F
Acetaminophen 650 mg 10/08/23 10:01
Acetaminophen 325 Mg Tablet PO 11/05/23 10:00
Q4HPRN PRN
ABARCA, mild pain, or temp >100.4F
Dextrose 12.5 grams 10/08/23 10:01
Dextrose 50% (0.5 Grams/Ml) 50 Ml Syringe IV 11/05/23 10:00
[id number] PRN
hypoglycemia
Protocol
Glucagon 1 mg 10/08/23 10:01
Glucagon 1 Mg Vial IM 11/05/23 10:00
PRN PRN
hypoglycemia
Protocol
Sodium Chloride 1,000 mls @ 75 mls/hr 10/08/23 10:01 10/09/23 00:19
Nss IV 1,000 mls
.[id number] PRICE Administration
Insulin Aspart 0 units 10/08/23 18:00 10/09/23 06:19
Insulin Aspart Low Resistance 300 Units/3 Ml Pen.Injctr SC 11/05/23 17:59 1 units
Q6 PRICE Administration
Protocol
Labetalol HCl 10 mg 10/08/23 10:15
Labetalol Hcl (5 Mg/Ml) 20 Ml Multi-Dose Vial IV 11/05/23 10:14
Q6HPRN PRN
SBP > 160 mmHg or DBP > 110 mmHg
Sodium Chloride 0 flush 10/08/23 11:00
Sodium Chloride 0.9% (Flush) Syringe IV 11/05/23 10:59
PER PROTOCOL PRICE
[2023-10-09 12:34] LABS: Glucose - Point of Care 137 mg/dl (70-99)
[2023-10-09] MEDS: NOVOLOG FLEXPEN-LOW RESISTANCE SC ×2 (13:18→17:45)
--- NOTE | 2023-10-09 13:30 | W.PN.HOSP.TC ---
Today's Communication/Plan
-
d/c planning for wel Hospice
transfer med/surg
Assessment / Plan
Assessment / Plan
CT head
1). 11 cm subacute nonhemorrhagic left middle cerebral artery infarct with associated thrombus in the left middle cerebral artery
2). There is moderate diffuse cortical atrophy with moderate nonspecific white matter changes as described above.
CTA head and neck
1). There is partially calcific atherosclerotic plaque at the left carotid bifurcation associated with complete occlusion of the left internal carotid artery approximately 1 cm distal to its origin with thrombotic occlusion of the remainder of the
left internal carotid artery and M1 segment of the left middle cerebral
2). There is a small volume partially calcific atherosclerotic plaque in the right carotid bifurcation and cavernous portion of the right internal carotid artery without significant associated stenosis.Normal flow is demonstrated in the right
anterior and middle cerebral arteries and there is cross filling of the left anterior cerebral artery via patent anterior communicating artery..
The right posterior communicating artery is also patent

1. Left MCA area CVA
� � h/o CVA
-Patient found down with last known normal state at 8 PM yesterday
-Right facial droop/right upper extremity weakness
-CT head and CTA head and neck showing large MCA area CVA.� Atherosclerotic blockage of internal carotid artery as well.� See above
-CT cerebral perfusion study done in ER
-ER discussed case with neurology and not a candidate for TNKase/tPA versus IAT
-in ER got Rectal aspirin 300 mg
2. NIDDM
-Maintain insulin sliding scale
3.� Essential hypertension
-IV labetalol for systolic blood pressure above 180.� Hold oral medication until clear speech therapy evaluation
4.� Chronic diastolic congestive heart failure
�� � History of mitral regurgitation and repair
� � � Severe pulmonary hypertension
-Hold Lasix as patient n.p.o.
-No signs of volume overload
5.� Hypothyroidism
-Hold levothyroxine as NPO
6. Hypothermia
-Required Althea hugger
-Now have mild fever with temp 100.3 F -
DVT PPX -scd
DNR/DNI -ER physician discussed with patient POA/friend
Goal of care discussed with patient nephew and POA - everyone in agreement with hospice care and discharge plan for [facility] hospice
Anticipated Discharge: Within 24 hours
Subjective/Interval History
-
Date of Service: October 09, 2023
Remains minimally responsive on physical stimuli
Hypothermia resolved now borderline fever
Objective Data
-
Labs:
Laboratory Results
10/09/23
03:59
WBC 22.6 H
Hgb 10.2 L
Hct 30.1 L
Plt Count 288
Sodium 137
Potassium 4.8
Chloride 104
Carbon Dioxide 18 L
BUN 39 H
Creatinine 1.3
Glucose 140 H
Calcium 9.6
Vital Signs:
Vital Signs
Temp Pulse Resp BP Pulse Ox
100.3 F 75 25 140/83 97
10/09/23 07:40 10/09/23 12:00 10/09/23 12:00 10/09/23 12:00 10/09/23 09:50
I&O
10/08/23 10/09/23 10/10/23
05:59 06:59 06:59
Intake Total
Balance
Review of Systems
-
Unable to obtain full review of systems at this time due to: Dementia and Acuity
Physical Exam
-
General: Cachectic
HEENT: Oxygen
Respiratory: Rhonchi
Cardiac: Regular Rhythm and S1/S2; Negative Murmur
GI: Soft and Nondistended
Neuro: Oriented
Psych: Calm
[2023-10-09 17:27] LABS: Glucose - Point of Care 111 mg/dl (70-99)
--- NOTE | 2023-10-09 20:31 | PTCARENOTE ---
Received pt from mino RN. Pt is nonverbal, opens eyes to voice, NIH 22. On RA, lungs diminished. Incont x2 soft, loose BM. SCDs in place. Mouth care and Q2T provided. Pt is laying comfortable in bed with call zuniga in reach.
[2023-10-10] VITALS (9 sets, daily range): BP systolic 144–162; BP diastolic 72–96; BMI 23.0
[2023-10-10 00:03] LABS: Glucose - Point of Care 144 mg/dl (70-99)
[2023-10-10] MEDS: NOVOLOG FLEXPEN-LOW RESISTANCE SC ×3 (00:15→18:35)
[2023-10-10 04:03] LABS: Mean Corp Hgb Conc. 33.3 g/dL (33.0-37.0); Mean Corpuscular Hgb 28.9 pg (27.0-31.0); Mean Corpuscular Volume 86.7 fL (80.0-94.0); Mean Platelet Volume 11.3 fL (7.4-10.4); Platelet Count 296 10^3/uL (130-400); Red Blood Cell Count 3.46 10^6/uL (4.70-6.10); Red Cell Dist. Width 17.2 % (11.5-14.5); White Blood Cell Count 20.2 10^3/uL (4.8-10.8)
[2023-10-10 04:28] LABS: Blood Urea Nitrogen 52 mg/dl (9-20); Calcium 9.2 mg/dl (8.4-10.2); Carbon Dioxide 16 mmol/L (22-30); Chloride 112 mmol/L (98-107); Estimated Creatinine Clearance 24 ml/min; Glucose 136 mg/dl (70-99); Potassium 4.3 mmol/L (3.5-5.1); Sodium 137 mmol/L (135-145); eGFR 26.28
[2023-10-10 06:22] LABS: Glucose - Point of Care 141 mg/dl (70-99)
--- NOTE | 2023-10-10 09:26 | W.PN.HOSP.TC ---
Today's Communication/Plan
-
Hospice consult as planned
Assessment / Plan
Assessment / Plan
CT head
1). 11 cm subacute nonhemorrhagic left middle cerebral artery infarct with associated thrombus in the left middle cerebral artery
2). There is moderate diffuse cortical atrophy with moderate nonspecific white matter changes as described above.
CTA head and neck
1). There is partially calcific atherosclerotic plaque at the left carotid bifurcation associated with complete occlusion of the left internal carotid artery approximately 1 cm distal to its origin with thrombotic occlusion of the remainder of the
left internal carotid artery and M1 segment of the left middle cerebral
2). There is a small volume partially calcific atherosclerotic plaque in the right carotid bifurcation and cavernous portion of the right internal carotid artery without significant associated stenosis.Normal flow is demonstrated in the right
anterior and middle cerebral arteries and there is cross filling of the left anterior cerebral artery via patent anterior communicating artery..
The right posterior communicating artery is also patent

Patient opens his eyes not following commands
Pupils equal and reactive
Right arm flaccid
Moves toes on the right side
Cardiovascular system S1-S2 appreciated
Chest clear to auscultation
# Left MCA area CVA
-Has a �h/o CVA
-Patient found down with last known normal state at 8 PM Previous day of arrival
-Right facial droop/right upper extremity weakness
-CT head and CTA head and neck showing large MCA area CVA.� Atherosclerotic blockage of internal carotid artery as well.� See above
-CT cerebral perfusion study done in ER
-ER discussed case with neurology and not a candidate for TNKase/tPA versus IAT
-In ER got Rectal aspirin 300 mg
# NIDDM
-Maintain insulin sliding scale
-Hold metformin as n.p.o.
# Essential hypertension
-IV labetalol for systolic blood pressure above 180.� Hold oral medication until clear speech therapy evaluation
#Chronic diastolic congestive heart failure
�� � History of mitral regurgitation and repair
� � � Severe pulmonary hypertension
-Hold Lasix as patient n.p.o.
# Hypothyroidism
-Hold levothyroxine as NPO AND SINCE HOSPICE PURSUED
# Hyperlipidemia-hold statin as n.p.o.
# Hypothermia
-Required Althea hugger
-Now have mild fever with temp 100.3 F
# History of dementia
# Bifascicular block
# GERD
# Anemia
#Ex-smoker
#DVT PPX -scd
#DNR/DNI -ER physician discussed with patient POA/friend
D/W RN and Case management
Dr Kebede 'Discussed Goal of care with patient's nephew and POA - everyone in agreement with hospice care and discharge plan for [facility]'
Anticipated Discharge: Within 24 hours
Subjective/Interval History
-
Date of Service: October 10, 2023
Objective Data
-
Labs:
Laboratory Results
10/10/23
03:39
WBC 20.2 H
Hgb 10.0 L
Hct 30.0 L
Plt Count 296
Sodium 137
Potassium 4.3
Chloride 112 H
Carbon Dioxide 16 L
BUN 52 H
Creatinine 2.4 H
Glucose 136 H
Calcium 9.2
Vital Signs:
Vital Signs
Temp Pulse Resp BP Pulse Ox
99.3 F 84 30 156/91 92
10/10/23 07:35 10/10/23 08:53 10/10/23 08:53 10/10/23 08:53 10/09/23 23:07
I&O
10/09/23 10/10/23 10/11/23
06:59 06:59 06:59
Intake Total 900 / 900
Balance 900 / 900
--- NOTE | 2023-10-10 10:09 | CM ---
Patient from [facility] with Dx CVA. Room air. Per nurse assessment; non-verbal. NPO.
Spoke with Maikel Bello, [facility] (ph [phone]); she is aware patient needs to return to their SNF with Hospice. They do not have an available bed today, and may possibly have a bed tomorrow. Maikel is waiting to hear about discharges
today and will let CM know.
Above update provided to Dr Swanson, hospice nurse Jojo, nurse Ravi.
Spoke with JAD Kim; provided update that [facility] is hoping to have an available bed tomorrow for [place].
Plan follow up with [facility] for bed availability.
Plan [facility] with Hospice.
--- NOTE | 2023-10-10 10:13 | PTCARENOTE ---
Patient arouses to voice when name called. Poor participation in stroke scale, not following commands. PERRLA @ 2. RLE withdraws to touch. Nonverbal. Strict NPO, mouth care provided. Q2 turns. Patient appears comfortable. Continuing to monitor
patient.
[2023-10-10 12:06] LABS: Glucose - Point of Care 156 mg/dl (70-99)
[2023-10-10] MEDS: NOVOLOG FLEXPEN-LOW RESISTANCE 1 UNITS SC (12:07)
--- NOTE | 2023-10-10 12:21 | HOSPNOTE ---
The plan is for patient to return to [facility] with hospice services with . Once patient is transferred back to [place] we will sign patient onto hospice services. Case management and attending aware.
[2023-10-10 18:25] LABS: Glucose - Point of Care 132 mg/dl (70-99)
--- NOTE | 2023-10-10 20:37 | W.PN.UPDATE ---
Update Note
Progress Note Update
Nurse reporting that patient is minimally responsive, tachypneic and presenting uncomfortable. At bedside for assessment, patient is minimally responsive to tactile stimuli (opens right eye, does not track), does not follow commands. He is
tachycardic 190s (EKG obtained), tachypneic in upper 30s low 40s with periods of apnea 5-10 seconds in length, accessory muscle use with retractions observed, lungs clear throughout all lung rock but diminished, observed moist cough and attempt to
clear secretions. SpO2 low 90s upper 80s on roomair, bowel sounds hypoactive x4 quads, incontinent of bowel and bladder, nursing describing urine as moderate amount and concentrated (lalita/brown in color), bilateral hands and feet cool to touch, no
mottling observed.
Call placed to POA Mr. Marlo Morse with update of change in status. Mr Morse requested I follow patients advanced directive that he read over phone that indicated no heroic measures be taken, no CPR, no intubation, no artificial hydration or
feeding and that comfort be maintained with medications as indicated. First section of Advanced directive read, 'treatment to be directed to maintaining comfort including oxygen and medications to control pain.' Mr. Morse plans to visit hospital
tomorrow, 10/11/2023 in the afternoon, he will bring a copy of advanced directive with him. After review of patients current status and description of comfort measures, Mr. Morse agrees this is what patient would want. Orders placed to maintain
comfort overnight. At his request a phone call was made to patients nephew, Mr. Soto Kline with an update on status. Update given to attending provider and hospice team.
Comfort care orders placed with hospice consult for potential GIP.
--- NOTE | 2023-10-10 20:42 | PTCARENOTE ---
Received pt at change of shift. Pt minimal responsive and unable to follow commands - NIH unchanged from previous shift. Pt HR jumped to 160s-180s multiple times at beginning of shift. Tachypneic and labored respirations utilizing accessory
muscles. Family at bedside and agreed that pt appears uncomfortable. Notified APPLIANCE PAINTER AND REFINISHER. 1x dose of morphine ordered. (see MAR).
[2023-10-10] MEDS: MORPHINE SULFATE 1 MG IV (20:53)
--- NOTE | 2023-10-10 22:53 | PTCARENOTE ---
Pt HR sustaining in the 190s/200s. Notified HOT BOX CHECKER. EKG ordered and obtained. Pt RR high 30s, labored respirations with some short periods of apnea. HOT BOX CHECKER at bedside.
[2023-10-11] VITALS (10 sets, daily range): BP systolic 114–154; BP diastolic 64–117
[2023-10-11] MEDS: MORPHINE SULFATE 2 MG IV ×7 (00:46→22:52)
[2023-10-11] MEDS: NOVOLOG FLEXPEN-LOW RESISTANCE SC ×2 (00:46→07:06)
[2023-10-11] MEDS: ROBINUL 0.200000000000000011 MG IV (07:20)
--- NOTE | 2023-10-11 08:11 | W.PN.HOSP.TC ---
Today's Communication/Plan
-
Comfort care
Assessment / Plan
Assessment / Plan
CT head
1). 11 cm subacute nonhemorrhagic left middle cerebral artery infarct with associated thrombus in the left middle cerebral artery
2). There is moderate diffuse cortical atrophy with moderate nonspecific white matter changes as described above.
CTA head and neck
1). There is partially calcific atherosclerotic plaque at the left carotid bifurcation associated with complete occlusion of the left internal carotid artery approximately 1 cm distal to its origin with thrombotic occlusion of the remainder of the
left internal carotid artery and M1 segment of the left middle cerebral
2). There is a small volume partially calcific atherosclerotic plaque in the right carotid bifurcation and cavernous portion of the right internal carotid artery without significant associated stenosis.Normal flow is demonstrated in the right
anterior and middle cerebral arteries and there is cross filling of the left anterior cerebral artery via patent anterior communicating artery..
The right posterior communicating artery is also patent

Patient status changed overnight. He became less responsive.
On examination patient is not awake or alert. Moves left hand with stimulation.
Assessment
#TME from CVA
#Left MCA area CVA
-Has a �h/o CVA
-Patient found down with last known normal state at 8 PM Previous day of arrival
-Right facial droop/right upper extremity weakness
-CT head and CTA head and neck showing large MCA area CVA.� Atherosclerotic blockage of internal carotid artery as well.� See above
-CT cerebral perfusion study done in ER
-ER discussed case with neurology and not a candidate for TNKase/tPA versus IAT
-In ER got Rectal aspirin 300 mg
# NIDDM
# Essential hypertension
#Chronic diastolic congestive heart failure
��History of mitral regurgitation and repair
� Severe pulmonary hypertension
# Hypothyroidism
# Hyperlipidemia
# Hypothermia
# History of dementia
# Bifascicular block
# GERD
# Anemia
#Ex-smoker
#DVT PPX -scd
#DNR/DNI -ER physician discussed with patient POA/friend
D/W RN
Plan
Patient's condition has changed overnight. Outpatient hospice does not look feasible anymore. May need to be transition to inpatient hospice. Already on comfort care.
I spoke to patient's power of banking attorney this am who agrees with the plan.
Await hospice to evaluate the patient today and to job change crew member to inpatient hospice.
On meds for comfort
Anticipated Discharge: 24 - 48 hours
Subjective/Interval History
-
Date of Service: October 11, 2023
Objective Data
-
Vital Signs:
Vital Signs
Temp Pulse Resp BP Pulse Ox
99.3 F 76 18 138/80 97
10/10/23 23:22 10/11/23 06:00 10/11/23 06:00 10/11/23 06:00 10/11/23 06:00
I&O
10/10/23 10/11/23 10/12/23
06:59 06:59 06:59
Intake Total 900 / 900
Balance 900 / 900
--- NOTE | 2023-10-11 09:16 | PN.CDI ---
CDI
- -
CDI:
Physician Documentation Request
Admit Date: 10/08/23 07:52
Dear Doctor Sky,
Please review the following and provide your response in the progress notes.
Clinical Indicators:
Pt admitted with Left MCA CVA/TME
Renal functions are trended below
10/08/23 10/09/23 10/10/23
06:11 03:59 03:39
Creatinine 1.0 1.3 2.4 H
Clarify which of the following accurately represents the patient's renal status:
SHARAN
Abnormal lab value of clinical insignificance
Other
Criteria for SHARAN*
1 Increase in serum creatinine by > or = to 0.3 mg/dL (> or = to 26.5 micromol/L) within 48 hours, OR
2 Increase in serum creatinine to > or = to 1.5 times baseline, which is known or presumed to have occurred within 7 days, OR
3 Urine volume < 0.5 nL/kg/hour for six hours
Use of terms such as suspected, likely, concern for, or probable (associated with a specific diagnosis that is being evaluated, monitored, or treated as if it exists) are acceptable and can be coded in the inpatient setting, when documented at the
time of discharge.
Thank you,
Eneida Wilson RN
CDI Specialist
[facility] [employer]
Please use your independent medical judgment in providing your response.
*Source: Kidney Disease: Improving Global Outcomes (KDIGO) 2012
--- NOTE | 2023-10-11 09:39 | CM ---
As per Nursing and MD patient less responsive.
[facility] aware .Pt is comfort care.[facility] said that Marlo news camera person was notified. He will be visiting today.
Maikel Bello, [facility] (ph [phone])notified .Pt was from personal care at [facility].
PLAN Continue Comfort Care
--- NOTE | 2023-10-11 11:32 | PTCARENOTE ---
Pt continues with labored breathing given Morphine as ordered
--- NOTE | 2023-10-11 11:57 | HOSPNOTE ---
Went to see patient who appears actively dying. Will continue to support and re assess. Patient appears comfortable at this time. Spoke with nurse and will continue to follow.
--- NOTE | 2023-10-11 20:59 | PTCARENOTE ---
Report provided to RICHARD Deng on 2N. Pt and all belongings transferred to 2125 with pt. Pt's wallet is still in a lock box with security.
[2023-10-12] MEDS: MORPHINE SULFATE 2 MG IV ×7 (00:56→11:09)
[2023-10-12 07:05] VITALS: BP 100/61
[2023-10-12] MEDS: ATIVAN 0.5 MG IV (10:08)
--- NOTE | 2023-10-12 12:23 | W.PN.HOSP.TC ---
Addendum entered and electronically signed by Forest Swanson MD 10/13/23 09:55:
SHARAN
Original Note:
Today's Communication/Plan
-
Continue Comfort care
Assessment / Plan
Assessment / Plan
CT head
1). 11 cm subacute nonhemorrhagic left middle cerebral artery infarct with associated thrombus in the left middle cerebral artery
2). There is moderate diffuse cortical atrophy with moderate nonspecific white matter changes as described above.
CTA head and neck
1). There is partially calcific atherosclerotic plaque at the left carotid bifurcation associated with complete occlusion of the left internal carotid artery approximately 1 cm distal to its origin with thrombotic occlusion of the remainder of the
left internal carotid artery and M1 segment of the left middle cerebral
2). There is a small volume partially calcific atherosclerotic plaque in the right carotid bifurcation and cavernous portion of the right internal carotid artery without significant associated stenosis.Normal flow is demonstrated in the right
anterior and middle cerebral arteries and there is cross filling of the left anterior cerebral artery via patent anterior communicating artery..
The right posterior communicating artery is also patent

Mostly unresponsive to verbal or tactile stimulus. Patient opens his eyes occasionally per nursing when he is rolled to change him
Assessment
#TME from CVA
#Left MCA area CVA
-Has a �h/o CVA
-Patient found down with last known normal state at 8 PM Previous day of arrival
-Right facial droop/right upper extremity weakness
-CT head and CTA head and neck showing large MCA area CVA.� Atherosclerotic blockage of internal carotid artery as well.� See above
-CT cerebral perfusion study done in ER
-ER discussed case with neurology and not a candidate for TNKase/tPA versus IAT
-In ER got Rectal aspirin 300 mg
# NIDDM
# Essential hypertension
#Chronic diastolic congestive heart failure
��History of mitral regurgitation and repair
� Severe pulmonary hypertension
# Hypothyroidism
# Hyperlipidemia
# Hypothermia
# History of dementia
# Bifascicular block
# GERD
# Anemia
#Ex-smoker
#DNR/DNI
D/W RN
Plan
Patient appears to be mostly comfortable , getting as needed morphine. Proceed to drip per protocol if needed.
Continue comfort care
Anticipated Discharge: 24 - 48 hours
Subjective/Interval History
-
Date of Service: October 12, 2023
Objective Data
-
Vital Signs:
Vital Signs
Temp Pulse Resp BP Pulse Ox
98.3 F 116 24 100/61 75
10/12/23 07:05 10/12/23 07:05 10/12/23 07:05 10/12/23 07:05 10/12/23 07:05
I&O
10/11/23 10/12/23 10/13/23
06:59 06:59 06:59
Intake Total 0 / 0
Balance 0 / 0
--- NOTE | 2023-10-12 15:49 | W.PN.DEATH ---
Addendum entered and electronically signed by Forest Swanson MD 10/12/23 17:30:
Dictation- [id number]
Original Note:
Pronouncement of
-
Called to see patient to pronounce.
No spontaneous heart tones or respirations noted.
Patient not responsive to verbal stimuli.
Patient is pronounced .
Time of : 15:25
Date of : 10/12/23
Cause of : Stroke
Family Notified: Yes
--- NOTE | 2023-10-12 16:09 | PTCARENOTE ---
Upon hourly round, patient noticed to be pulseless, with no breath sounds. Dr Swanson notified and pronounced patient. [employer] called and wallet retrieved from security safe and will be sent with body. No indication of family to come.
--- NOTE | 2023-10-12 16:26 | CM ---
Patient at 3:49PM.
--- NOTE | 2023-10-12 16:53 | PTCARENOTE ---
Postmortum care completed. [place] [facility]'s clothes[place]
== END 2023-10-12 17:02 | disposition expired | DRG 64 ==
LOC: 2 NORTH 07:52
PROVIDERS: ADMITTING PHYSICIAN Hospitalist; ATTENDING PHYSICIAN Hospitalist; CONSULT PHYSICIAN Psychiatry & Neurology Neurology; EMERGENCY PHYSICIAN Emergency Medicine; FAMILY PHYSICIAN Student in an Organized Health Care Education/Training Program
DX: I63.512 Cerebral infarction due to unspecified occlusion or stenosis of left middle cerebral artery (principal); G92.8 Other toxic encephalopathy; I50.32 Chronic diastolic (congestive) heart failure; N17.9 Acute kidney failure, unspecified; R64 Cachexia; I65.23 Occlusion and stenosis of bilateral carotid arteries; I11.0 Hypertensive heart disease with heart failure; F03.90 Unspecified dementia, unspecified severity, without behavioral disturbance, psychotic disturbance, mood disturbance, and anxiety; Z68.23 Body mass index [BMI] 23.0-23.9, adult
CPT/HCPCS: 0042T; 70450; 70496; 70498; 71045; 80048; 80053; 80061; 82550; 82962; 85025; 85027; 85610; 85730; 87040; 93005; 99291; Q9967